=== PATIENT | female | born 1990 | race Two or more races ===

== ENCOUNTER 2018-10-03 11:45 | Emergency (ER) | payer SELFPAY ==
[~2018-10-03] VITALS: Ht 154.9 cm; Wt 79.8 kg
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
--- NOTE | 2018-10-03 12:24 | NUR ---
MUSEUM EDUCATOR DEGRASSE AT BEDSIDE
--- NOTE | 2018-10-03 12:34 | NUR ---
Patient discharged to home in stable condition. Written and verbal after care instructions given. Patient verbalizes understanding of instruction.
[2018-10-03 12:35] VITALS: BP 137/99
== END 2018-10-03 12:36 | disposition home or self-care (01) ==
LOC: ER 11:48
DX: S39.012A Strain of muscle, fascia and tendon of lower back, initial encounter (principal); S16.1XXA Strain of muscle, fascia and tendon at neck level, initial encounter; W20.8XXA Other cause of strike by thrown, projected or falling object, initial encounter; Y93.89 Activity, other specified; Y92.89 Other specified places as the place of occurrence of the external cause; Y99.8 Other external cause status